=== PATIENT | male | born 1960 | race Caucasian/White ===

== ENCOUNTER 2016-07-13 14:28 | Emergency (ER) | payer BC, OTHER ==
[~2016-07-13] VITALS: Ht 175.3 cm; Wt 77.1 kg
[~2016-07-13 14:28] MED LIST: LEVOTHYROXIN0.112 M1 PO; MEDROLDOSEPACK PO; MOBIC15 MG PO; SIMVASTATIN20 MG PO
[2016-07-13] MEDS ORDERED: KEFLEX500 MG PO (15:51)
== END 2016-07-13 16:15 | disposition home or self-care (01) ==
LOC: ER 14:28
DX: S01.112A Laceration without foreign body of left eyelid and periocular area, initial encounter (principal); F10.99 Alcohol use, unspecified with unspecified alcohol-induced disorder; W00.0XXA Fall on same level due to ice and snow, initial encounter; Y93.89 Activity, other specified; Y92.89 Other specified places as the place of occurrence of the external cause; Y99.8 Other external cause status